=== PATIENT | male | born 1970 | race Caucasian/White ===

== ENCOUNTER 2018-07-06 04:07 | Emergency (ER) | payer OTHER ==
[2018-07-06 04:12] VITALS: BP 120/61
--- NOTE | 2018-07-06 04:30 | ED ---
Laceration/Wound HPI - HPI Summary HPI Summary: This patient is a 48 year old male presenting to [facility] accompanied by with a chief complaint of right hand laceration since approx. 4 hours ago. 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 The laceration is present on the 3rd digit of the right hand. He presents to the ED as he is worried that he may need to get stitches. The pain is rated 2/10 in severity. Symptoms aggravated by nothing. Symptoms alleviated by nothing. Patient denies any other medical complaints at this time. - History of Current Complaint Stated Complaint: RIGHT FINGER LAC Hx Obtained From: Patient Onset/Duration: Lasting Hours, Still Present Aggravating: Nothing Alleviating: Nothing Current Severity: Mild Pain Intensity: 2 Pain Scale Used: 0-10 Numeric Associated Signs & Symptoms: Pain - Allergy/Home Medications Allergies/Adverse Reactions: Allergies Allergy/AdvReac Type Severity Reaction Status Date / Time No Known Allergies Allergy Verified 05/01/16 21:25 PMH/Surg Hx/FS Hx/Imm Hx Previously Healthy: Yes Opthamlomology History: Denies: Hx Legally Blind EENT History: Denies: Hx Deafness Infectious Disease History: No Infectious Disease History: Denies: Traveled Outside the [place] in Last 30 Days - Family History Known Family History: Positive: Hypertension - Social History Lives: With Family Alcohol Use: Weekly Hx Substance Use: No Substance Use Type: Reports: None Hx Tobacco Use: No Smoking Status (MU): Never Smoked Tobacco Review of Systems Negative: Fever Positive: Other - laceration to 3rd digit of right hand All Other Systems Reviewed And Are Negative: Yes Physical Exam - Summary Physical Exam Summary: Appearance: Well-appearing, Well-nourished, lying in bed comfortably Skin: Warm, dry, no obvious rash. laceration to 3rd digit of right hand Eyes: sclera anicteric, no conjunctival pallor ENT: mucous membranes moist, pharynx appears normal Neck: Supple, nontender Respiratory: Clear to auscultation, no signs of respiratory distress Cardiovascular: Normal S1, S2. No murmurs. Normal distal pulses in tibial and radial bilaterally. Abdomen: Soft, nontender, normal active bowel sounds present Musculoskeletal: Normal, Strength/ROM Intact Neurological: A&Ox3, awake and alert, mentation is normal, speech is fluent and appropriate Psychiatric: affect is normal, does not appear anxious or depressed Triage Information Reviewed: Yes Vital Signs On Initial Exam: Initial Vitals Temp Pulse Resp BP Pulse Ox 98.4 F 72 15 120/61 97 07/06/18 04:09 07/06/18 04:09 07/06/18 04:09 07/06/18 04:09 07/06/18 04:09 Vital Signs Reviewed: Yes Procedures - Laceration/Wound Repair 1 Location: upper extremity - finger Description: Joint Proximity - 3rd proximal phalange, near mcp joint Anesthesia: .5%, Lido, Epi Length, Depth and Shape: 1.5cm flap Betadine Prep?: Yes Irrigated w/ Saline (ccs): 0 - tap water irrigation Laceration/Wound Explored: clean Closure: Single Layer Debridement: none Suture Type: Nylon Number of Sutures: 3 Layer Closure?: No Sterile Dressing Applied?: Yes Diagnostics - Vital Signs Vital Signs Temp Pulse Resp BP Pulse Ox 07/06/18 04:09 98.4 F 72 15 120/61 97 - Laboratory Lab Statement: Any lab studies that have been ordered have been reviewed, and results considered in the medical decision making process. Laceration Repair Course/Dx - Course Assessment/Plan: This patient is a 48 year old male presenting to [facility] accompanied by with a chief complaint of right hand laceration since approx. 4 hours ago. 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 In the ED course the patient was given Boostrix tetanus titer. Laceration repair procedure completed. Patient will be discharged with a dx of finger laceration. Patient is advised to follow up with PCP if symptoms worsen. The patient is agreeable with this plan. Discharge - Sign-Out/Discharge Documenting (check all that apply): Patient Departure - Discharge Plan Condition: Stable Disposition: HOME Patient Education Materials: Finger Laceration (ED) Referrals: No Primary Care Phys,NOPCP [Primary Care Provider] - Additional Instructions: Sutures need to be removed in 7 days - Attestation Statements Document Initiated by Scribe: Yes Documenting Scribe: Estefany Lackey Provider For Whom Scribe is Documenting (Include Credential): Roderick Vasquez MD Scribe Attestation: Estefany Ovalle scribed for Roderick Vasquez MD on 07/06/18 at 0444.
[2018-07-06] MEDS ORDERED: Tetan/Diph/Pertus SYR(Tdap)* 0.5 ML SYR(BOOSTRIX) use SYR IM ONE (04:41)
== END 2018-07-06 04:53 | disposition home or self-care (01) ==
LOC: ED 04:07
DX: S61.212A Laceration without foreign body of right middle finger without damage to nail, initial encounter (principal); W25.XXXA Contact with sharp glass, initial encounter; Y93.89 Activity, other specified; Y92.9 Unspecified place or not applicable; Z23 Encounter for immunization
CPT/HCPCS: 12001; 90471; 90715; 99282

== ENCOUNTER 2019-04-09 02:35 | Emergency (ER) | payer OTHER ==
--- NOTE | 2019-04-09 03:13 | ED ---
Dizziness - HPI Summary HPI Summary: A 48 y/o M presents to ED c/o worsening dizziness onset approx 2330 last night. At bedside, he states his dizziness is mostly resolved. The dizziness is described as room-spinning. Aggravating factors: sitting down. Associated sx: vomiting. Denies abd pain. He says he drank moldy coffee with milk approx 30 minutes prior to his sx. - History Of Current Complaint Chief Complaint: EDDizziness Stated Complaint: DRANK MOLDY COFFEE/VOMITING/DIZZY PER PT Time Seen by Provider: 04/09/19 02:55 Hx Obtained From: Patient Onset/Duration: Still Present - mostly resolved Severity Initially: Moderate Severity Currently: Moderate Character: Room Spinning Aggravating Factor(s): Other - sitting Associated Signs And Symptoms: Positive: Vomiting, Other: - neg: abd pain - Allergies/Home Medications Allergies/Adverse Reactions: Allergies Allergy/AdvReac Type Severity Reaction Status Date / Time No Known Allergies Allergy Verified 05/01/16 21:25 PMH/Surg Hx/FS Hx/Imm Hx Previously Healthy: Yes Sensory History: Denies: Hx Legally Blind, Hx Deafness Opthamlomology History: Denies: Hx Legally Blind Neurological History: Denies: Hx Dementia Infectious Disease History: No Infectious Disease History: Denies: Traveled Outside the [place] in Last 30 Days - Family History Known Family History: Positive: Hypertension - Social History Occupation: Employed Full-time Lives: With Family Alcohol Use: Weekly Hx Substance Use: No Substance Use Type: Reports: None Hx Tobacco Use: No Smoking Status (MU): Never Smoked Tobacco Review of Systems Positive: Vomiting. Negative: Abdominal Pain Neurological: Other - pos: dizziness All Other Systems Reviewed And Are Negative: Yes Physical Exam - Summary Physical Exam Summary: Constitutional: Well-developed, Well-nourished, Alert. (-) Distressed Skin: Warm, Dry HENT: Normocephalic; Atraumatic Eyes: Conjunctiva normal; Neck: Musculoskeletal ROM normal neck. (-) JVD, (-) Stridor, (-) Tracheal deviation Cardio: Rhythm regular, rate normal, Heart sounds normal; Intact distal pulses; The pedal pulses are 2+ and symmetric. Radial pulses are 2+ and symmetric. (-) Murmur Pulmonary/Chest wall: Effort normal. (-) Respiratory distress, (-) Wheezes, (-) Rales Abd: Soft, (-) tenderness, (-) Distension, (-) Guarding, (-) Rebound Musculoskeletal: (-) Edema Lymph: (-) Cervical adenopathy Neuro: Alert, Oriented x3; Cranial nerves II-XII intact; normal finger to nose; mild horizontal nystagmus when looking to L Psych: Mood and affect Normal Triage Information Reviewed: Yes Vital Signs On Initial Exam: Initial Vitals Temp Pulse Resp BP Pulse Ox 97.9 F 71 20 138/66 100 04/09/19 02:37 04/09/19 02:37 04/09/19 02:37 04/09/19 02:37 04/09/19 02:37 Vital Signs Reviewed: Yes Diagnostics - Vital Signs Vital Signs Temp Pulse Resp BP Pulse Ox 04/09/19 02:37 97.9 F 71 20 138/66 100 - Laboratory Result Diagrams: 04/09/19 04:22 04/09/19 04:22 Lab Statement: Any lab studies that have been ordered have been reviewed, and results considered in the medical decision making process. - EKG 0244 Cardiac Rate: NL - 76 bpm EKG Rhythm: Sinus Rhythm Summary of EKG Findings: Normal sinus rhythm at 76 bpm, normal OR, normal QRS, normal QTc, normal axis, normal ST, normal T-waves, normal EKG. Re-Evaluation - Re-Evaluation 1 Re-Evaluation Time: 05:12 Change: Unchanged Comment: Discussing results with patient and plans for discharge. Dizzy Course/Dx - Course Course Of Treatment: Patient is a 48 y/o M presenting with worsening dizziness and vomiting onset approx 2330 last night, approx 30 minutes after drinking moldy coffee with milk. PE is unremarkable, patient is neurologically intact. Lab work is without significant abnormality. EKG shows normal sinus rhythm at 76 bpm, normal OR, normal QRS, normal QTc, normal axis, normal ST, normal T- waves, normal EKG. Will discharge patient home to follow up with PCP. - Diagnoses Provider Diagnoses: Vertigo, Food poisoning Discharge - Sign-Out/Discharge Documenting (check all that apply): Patient Departure Patient Received Moderate/Deep Sedation with Procedure: No - Discharge Plan Condition: Stable Disposition: HOME Patient Education Materials: Vertigo (ED), Food Poisoning (ED) Print Language: JAPANESE Referrals: [facility] [Outside] - Attestation Statements Document Initiated by Scribe: Yes Documenting Scribe: Orion Toth Provider For Whom Scribe is Documenting (Include Credential): Dr. Ruthy Reyes MD Scribe Attestation: Orion Ovalle, scribed for Dr. Ruthy Reyes MD on at 0720. Status of Scribe Document: Ready
[2019-04-09 04:34] LABS: ABS Lymphocytes 0.7 10^3/ul (1.0-4.8); ABS Monocytes 0.3 10^3/ul (0-0.8); ABS Neutrophils 9.3 10^3/ul (1.5-7.7); Eosinophil % 0.2 %; Hematocrit 40 % (42-52); Hemoglobin 13.3 g/dL (14.0-18.0); Mean Corpuscular HGB Conc 34 g/dL (31-36); Mean Corpuscular Hemoglobin 26 pg (27-31); Mean Corpuscular Volume 78 fL (80-94); Platelet Count 162 10^3/uL (150-450); Red Blood Count 5.11 10^6 /uL (4.18-5.48); Red Cell Distribution Width 14 % (10-15); White Blood Count 10.4 10^3/uL (3.5-10.8)
[2019-04-09 04:46] LABS: Albumin 3.8 g/dL (3.2-5.2); Albumin/Globulin Ratio 1.3 (1-3); BUN/Creatinine Ratio 18.6 (8-20); Calcium 9.1 mg/dL (8.6-10.3); EGFR African American 83.8 (>60); EGFR Non-African American 69.3 (>60); Globulin 2.9 g/dL (2-4); Potassium 3.4 mmol/L (3.5-5.0); Total Bilirubin 0.6 mg/dL (0.2-1.0); Total Protein 6.7 g/dL (6.4-8.9)
[2019-04-09] MEDS ORDERED: Potassium Chloride* LIQUID 20 MEQ/15 ML UDC PO ONE (05:06)
[2019-04-09 05:37] VITALS: BP 131/71
== END 2019-04-09 05:36 | disposition home or self-care (01) ==
LOC: ED 02:35
DX: T62.91XA Toxic effect of unspecified noxious substance eaten as food, accidental (unintentional), initial encounter (principal); R11.10 Vomiting, unspecified; R42 Dizziness and giddiness
CPT/HCPCS: 36415; 80053; 83605; 83690; 84484; 85025; 93005; 99282; A9270-GY

== ENCOUNTER 2019-07-30 16:33 | Emergency (ER) | payer OTHER ==
[2019-07-30 17:39] VITALS: BP 133/89
--- NOTE | 2019-07-30 18:02 | UC ---
Back Pain HPI - HPI Summary HPI Summary: 49-year-old male comes in with a chief complaint of back pain. Patient reports he injured himself by twisting turning and then falling 2 days ago at home. Pain is in the lower thoracic midline. Pain is worse with twisting turning bending. He did go to work hemorrhage is less heavy lifting and that only made the pain worse. He's been taking Aleve with minimal help. No complaint of radiation of the pain down the legs. No complaint of weakness numbness or difficulty controlling urine or bowels. - History of Current Complaint Chief Complaint: UCBackPain Stated Complaint: BACK INJURY Time Seen by Provider: 07/30/19 17:49 Pain Intensity: 4 - Allergies/Home Medications Allergies/Adverse Reactions: Allergies Allergy/AdvReac Type Severity Reaction Status Date / Time No Known Allergies Allergy Verified 07/30/19 17:39 Home Medications: Home Medications Naproxen Sodium [Aleve] 880 mg PO Q6HR 07/30/19 [History Confirmed 07/30/19] PMH/Surg Hx/FS Hx/Imm Hx Previously Healthy: Yes - Surgical History Surgical History: None - Family History Known Family History: Positive: Hypertension - Social History Alcohol Use: Weekly Substance Use Type: None Smoking Status (MU): Never Smoked Tobacco Review of Systems All Other Systems Reviewed And Are Negative: Yes Constitutional: Positive: Negative Skin: Positive: Negative Eyes: Positive: Negative ENT: Positive: Negative Respiratory: Positive: Negative Cardiovascular: Positive: Negative Gastrointestinal: Positive: Negative Genitourinary: Positive: Negative Motor: Positive: Negative Neurovascular: Positive: Negative Musculoskeletal: Positive: Other: - SEE HPI Neurological: Positive: Negative Psychological: Positive: Negative Is Patient Immunocompromised?: No Physical Exam Triage Information Reviewed: Yes Appearance: Well-Appearing, Well-Nourished, Pain Distress - MIULD WITH ROM Vital Signs: Initial Vital Signs Temp 98.5 F 07/30/19 17:34 Pulse 82 07/30/19 17:34 Resp 16 07/30/19 17:34 BP 133/89 07/30/19 17:34 Pulse Ox 99 07/30/19 17:34 Vital Signs Reviewed: Yes Eye Exam: Normal Eyes: Positive: Conjunctiva Clear Neck: Positive: Supple Respiratory: Positive: No respiratory distress Musculoskeletal: Positive: Strength Intact, Other: - Tender to palpation mid line over the spinous processes of the distal thoracic back. Legs have full range of motion full-strength. No focal neurologic deficit. Neurological: Positive: Alert Psychological: Positive: Age Appropriate Behavior Skin Exam: Normal Back Pain Course/Dx - Course Course Of Treatment: Discussed is a lidocaine patch and also continue with the Aleve. Also Flexeril as needed. Physical therapy and/or sports medicine and follow-up as needed. I wrote for patient to be out of work until August 02, 2019. If the patient is not improved he may need to follow-up here or with sports medicine. If he gets worse he'll need to the emergency department. - Differential Dx/Diagnosis Provider Diagnosis: Acute thoracic back pain Discharge ED - Sign-Out/Discharge Documenting (check all that apply): Patient Departure All imaging exams completed and their final reports reviewed: No Studies - Discharge Plan Condition: Stable Disposition: HOME Prescriptions: Cyclobenzaprine TAB* [Flexeril 10 MG TAB*] 10 mg PO TID PRN #15 tab MDD 3 PRN Reason: Pain - Moderate Patient Education Materials: Acute Low Back Pain (ED), Lower Back Exercises (ED ) Forms: *Work Release Referrals: [facility] [Provider Group] Additional Instructions: FOLLOW UP WITH SPORTS MEDICINE. GO TO THE EMERGENCY DEPARTMENT IF YOUR CONDITION WORSENS; WEAKNESS, NUMBNESS, PAIN, DIFFICULTY CONTROLLING BOWEL OR BLADDER OR ANY QUESTIONS OR CONCERNS. - Billing Disposition and Condition Condition: STABLE Disposition: Home
== END 2019-07-30 18:13 | disposition home or self-care (01) ==
LOC: UCEAST 16:33
DX: M54.6 Pain in thoracic spine (principal)
CPT/HCPCS: 99212; G0463